=== PATIENT | female | born 1950 | race Hispanic/Latino ===

== ENCOUNTER 2021-07-28 12:06 | Emergency (ER) | payer OTHER ==
[2021-07-28] MEDS ORDERED: Ketorolac Tromethamine 30 MG/ML VIAL ONE (12:47)
== END 2021-07-28 14:55 | disposition home or self-care (01) ==
LOC: CSHERS 12:06
DX: S80.02XA Contusion of left knee, initial encounter (principal); S80.01XA Contusion of right knee, initial encounter; W19.XXXA Unspecified fall, initial encounter
CPT/HCPCS: 71045; 72170; 96372; J1885

== ENCOUNTER 2021-10-16 09:48 | Outpatient (CLI) | payer MEDICARE | END 2021-10-16 09:49 | disposition home or self-care (01) | LOC: CSHMAMMO 09:48 | PROVIDERS: ATTEND Internal Medicine Rheumatology | DX: M81.0 Age-related osteoporosis without current pathological fracture (principal); M85.89 Other specified disorders of bone density and structure, multiple sites | CPT/HCPCS: 77080 ==

== ENCOUNTER 2023-05-07 10:21 | Emergency (ER) | payer OTHER | END 2023-05-07 13:59 | disposition home or self-care (01) | LOC: CSHERS 10:21 | DX: L30.9 Dermatitis, unspecified (principal); M25.511 Pain in right shoulder; G89.29 Other chronic pain; I10 Essential (primary) hypertension | CPT/HCPCS: 93005 ==

== ENCOUNTER 2023-12-26 20:23 | Emergency (ER) | payer OTHER ==
[~2023-12-26 20:23] MED LIST: Iopamidol 370 76% 100 ML VIAL ONE
[2023-12-26] MEDS ORDERED: Ondansetron PF 4 MG/2 ML Vial ONE (20:43)
[2023-12-26 21:03] LABS: #Eosinophils 0.33 10x3/uL (0.0-0.5); #Monocytes 0.87 10x3/uL (0.0-1.1); #Neutrophils 2.22 10x3/uL (1.5-8.4); %Basophils 1.5 % (0.0-2.0); %Lymphocytes 46.4 % (18.0-47.0); %Monocytes 13.1 % (0.0-10.0); %Neutrophils 33.5 % (40.0-75.0); Hemoglobin 8.2 g/dL (12.0-15.5); Mean Corpuscular HGB CONC 29.3 g/dL (32.0-36.0); Mean Corpuscular Hemoglobin 18.8 pg (27.0-33.0); Mean Corpuscular Volume 64.1 fL (81.6-98.3); Mean Platelet Volume 9.9 fL (7.4-10.4); Platelet Count 287 10x3/uL (150-450); RBC Distribution Width 21.1 % (11.5-14.5); Red Blood Cell (RBC) Count 4.37 10x6/uL (3.90-5.03); White Blood Cell (WBC) Count 6.6 10x3/uL (3.5-10.5)
[2023-12-26 21:18] LABS: Troponin I Less than 0.010 ng/mL (< 0.028)
[2023-12-26 21:20] LABS: ALT (SGPT) Less than 7 U/L (8-55); AST (SGOT) 20 U/L (5-34); Albumin 3.1 g/dL (3.4-4.8); Alkaline Phosphatase 97 U/L (40-110); Anion Gap 13 mmol/L (10-20); BUN (Urea Nitrogen) 6 mg/dL (9.8-20.1); Bilirubin, Total 0.4 mg/dL (0.2-1.2); Calc. Creatinine Clearance 0 mL/min (70-130); Calcium 8.9 mg/dL (7.8-10.44); Carbon Dioxide 23 mmol/L (23-31); Chloride 105 mmol/L (98-107); Estimated GFR 94; Globulin 4.1 g/dL (2.4-3.5); Glucose 95 mg/dL (83-110); Lipase 28 U/L (8-78); Magnesium 1.9 mg/dL (1.6-2.6); Potassium 3.7 mmol/L (3.5-5.1); Protein, Total 7.2 g/dL (5.8-8.1); Sodium 137 mmol/L (136-145)
== END 2023-12-26 23:20 | disposition home or self-care (01) ==
LOC: CSHERS 20:23
DX: R11.2 Nausea with vomiting, unspecified (principal); R42 Dizziness and giddiness; D64.9 Anemia, unspecified; I10 Essential (primary) hypertension; Z79.899 Other long term (current) drug therapy
CPT/HCPCS: 70450; 70496; 70498; 80053; 83690; 83735; 84484; 85025; 86850; 86870; 86900; 86901; 93005; J2405; 36415; 96361; 96374; Q9967

== ENCOUNTER 2024-11-11 09:18 | Emergency (ER) | payer MEDICARE | END 2024-11-11 12:37 | disposition home or self-care (01) | LOC: CSHERS 09:18 | DX: J20.9 Acute bronchitis, unspecified (principal); I10 Essential (primary) hypertension | CPT/HCPCS: 71045; 87428; 93005 ==